=== PATIENT | male | born 1960 | race Caucasian/White ===

== ENCOUNTER → 2018-05-19 | Emergency (ER) | payer BC, SELFPAY ==
[~2018-05-19] MED LIST: Fentanyl 100 MCG/2 ML VIAL ONE; Ketorolac Tromethamine 30 MG/ML VIAL IVP SCH; Ketorolac Tromethamine 30 MG/ML VIAL ONE; Ketorolac Tromethamine 60 MG/2 ML VIAL ONE; Lidocaine Viscous Sol 2% 15 ml UD Cup ONE; Mag-Al Plus 1200 MG/1200 MG/120 MG/30 ML UDCUP ONE; Morphine 4 MG/ML Carpuject ONE; Ondansetron HCl/PF 4 MG/2 ML Vial ONE; Potassium Chloride 20 MEQ TAB ONE; Potassium Chloride 20 MEQ in Premix Bag 1 BAG IVPB ONE
[2018-05-19 17:46] LABS: ALT (SGPT) 42 U/L (8-55); AST (SGOT) 31 U/L (5-34); Albumin 4.5 g/dL (3.5-5.0); Alkaline Phosphatase 77 U/L (40-150); Anion Gap 17 mmol/L (10-20); BUN (Urea Nitrogen) 31 mg/dL (8.4-25.7); Bilirubin, Total 1.2 mg/dL (0.2-1.2); Calc. Creatinine Clearance 0 mL/min (70-130); Calcium 9.8 mg/dL (7.8-10.44); Carbon Dioxide 20 mmol/L (22-29); Chloride 106 mmol/L (98-107); Estimated GFR-MDRD 43; Globulin 3.3 g/dL (2.4-3.5); Glucose 174 mg/dL (70-105); Lipase 13 U/L (8-78); Potassium 3.4 mmol/L (3.5-5.1); Protein, Total 7.8 g/dL (6.0-8.3); Sodium 140 mmol/L (136-145)
[2018-05-19 17:50] LABS: Hemoglobin 17.7 g/dL (14.0-18.0); Mean Corpuscular HGB CONC 33.5 g/dL (32.0-36.0); Mean Corpuscular Hemoglobin 28.1 pg (27.0-31.0); Mean Corpuscular Volume 84.1 fL (78.0-98.0); Mean Platelet Volume 9.5 fL (7.4-10.4); Platelet Count 218 thou/uL (130-400); RBC Distribution Width 12.4 % (11.5-14.5); Red Blood Cell (RBC) Count 6.27 mill/uL (4.70-6.10); White Blood Cell (WBC) Count 6.2 thou/uL (4.8-10.8)
[2018-05-19 18:03] LABS: Band 26 % (5-11); Lymphocytes 7 % (21-51); MDiff Complete? YES; Manual Diff?? YES; Monocytes 4 % (0-10); Neutrophil 61 % (42-75); Reactive Lymphocytes 1 % (0-10)
[2018-05-19 18:04] LABS: Metamyelocyte 1 % (0-0); Vacuoles SLIGHT
[2018-05-19 19:41] LABS: Anion Gap 13 mmol/L (10-20)
[2018-05-19 19:54] LABS: BUN (Urea Nitrogen) 28 mg/dL (8.4-25.7); Calc. Creatinine Clearance 0 mL/min (70-130); Calcium 8.2 mg/dL (7.8-10.44); Carbon Dioxide 18 mmol/L (22-29); Chloride 114 mmol/L (98-107); Estimated GFR-MDRD 57; Glucose 115 mg/dL (70-105); Potassium 3.4 mmol/L (3.5-5.1); Sodium 142 mmol/L (136-145)
--- NOTE | 2018-05-19 20:51 | CT ---
CT ABDOMEN AND PELVIS WITHOUT CONTRAST 05/19/[address] of the abdomen and pelvis was performed for evaluation of protracted nausea and vomiting wi th fever and chills. Axial slices were acquired, then coronal reconstructions were done. IV contrast was withheld because the patient's GFR was rather low, in the 40s. The research physicist image reveals moderate gas in the colon. The colon is filled with gas throughout its entire length. Scans through the upper abdomen show the lung bases to be clear. The liver, spleen, pancreas, gallbla dder, kidneys, and abdominal aorta all appeared normal within the limitations of a noncontrast study. There is virtually no calcification in the aorta. As stated above, there is mild to moderate gaseous distention of the colon with some air fluid levels primarily in the right colon and transverse colonic region. One can follow the entire colon from cec um to rectum with no sign of stricture. There does not appear to be overt obstruction. The appendix a ppears normal. There is no bowel wall thickening at any point. The small bowel is decompressed. Some opacity seen within it is presumed to be intraluminal medication. Perhaps the carbone of a few loops ar e minimally thickened, but overall the small bowel is not very remarkable. It is worth noting that th ere are a few more mesenteric nodes present and slightly larger than one often sees. The possibility of mild mesenteric adenitis might be entertained. CT of the pelvis was unremarkable in that there were no masses, excessive adenopathy, inflammatory ch anges or free fluid. Bilateral fat filled inguinal hernias are noted. Some mild disc bulging is seen in the lower lumbar levels. IMPRESSION: Mild to moderate gaseous distention of the colon with some air fluid levels but no sign of overt obst ruction. Enteritis is a possibility. Additionally, mild mesenteric adenitis might be a consideration as well. POS: HOME
== END ==
LOC: BURERS 17:08
DX: K52.9 Noninfective gastroenteritis and colitis, unspecified (principal)
CPT/HCPCS: 74176; 80053; 82550; 83605; 83690; 85025; 96361; 96365; 96366; 96372; 96375; J1885; J2270; J2405; J3010